=== PATIENT | male | born 1945 | race Caucasian/White ===

== ENCOUNTER → 2017-02-26 | Day surgery (SDC) | payer OTHER ==
[~2017-02-26] VITALS: Ht 182.9 cm; Wt 68.2 kg
[~2017-02-26] MED LIST: ALBU18002 INH; ALLO100T PO; ASCO500T3 PO; ASPCH81X PO; ATOR-24 PO; CARV3.122 PO; CLOP1TAB54 PO; CRD200 PO; CYM/30 PO; ERGO500011 PO; ETOMIDATE 2 MG/ML 20 ML VIAL IV ONE; EpHEDrine SULFATE 50MG/5ML SYR ONE; FLV1 PO; FRS/40 PO; GLIM1TAB2 PO; IRON PO; ISR/30 PO; LIDOCAINE HCL 2% 2 ML VIAL (20MG/ML) ONE; MIDAZOLAM HCL 1 MG/ML 2ML VIAL ONE; MONT1TAB5 PO; NITR0.1S SC; OMEP40CA41 PO; PROPOFOL IV EMULSION 10 MG/ML 20 ML VIAL IV ONE; SPIR25TA PO; SUCR1TAB PO; SYMIN160 INH
[2017-02-26 08:03] VITALS: Ht 182.9 cm; Wt 68.2 kg
--- NOTE | 2017-02-26 08:34 | Endo History and Physical ---
History & Physical Date of Service: February 26, 2017. Chief Complaint: ANEMIA Referring Physician: DR ARANDA History of Present Illness History of recurrent transfusion requiring anmeia for repeat EGD and colonoscopy today Past Medical History Atrial Fibrillation, Diabetes, Arthritis, Pacemaker, High Cholesterol, Sleep Apnea, CABG, Heart Disease, Hypertension, Kidney Disease, CVA/TIA Past Surgical History Hx Cardiac Surgery: Yes (2 CABG PROCEDURES (SEE ABOVE), 1 CARDIAC STENT, CARDIAC ABLATION) Hx Internal Defibrillator: No Hx Pacemaker: Yes (PACEMAKER/DEF CHANGED) Hx Abdominal Surgery: Yes (OPEN APPY, AAA REPAIR) Hx of Implantable Prosthesis: No Hx Post-Op Nausea and Vomiting: No Hx Cancer Surgery: No Hx Thoracic Surgery: No Hx Orthopedic: Yes (TRIGGER FINGER RELEASE) Hx Urinary Tract Surgery: Yes (RT NEPHRECTOMY) Family History None Social History Smoking Status: Former Smoker Hx Substance Use: No Hx Alcohol Use: No Allergies Coded Allergies: Hydromorphone (Verified Allergy, Unknown, NECK TIGHTNESS, 02/26/17) Ondansetron (Verified Allergy, Unknown, unknown, 02/26/17) Rosuvastatin (Verified Allergy, Unknown, HEADACHE, 02/26/17) Uncoded Allergies: CIPROFLEXACIN (Allergy, Mild, RASH, 09/05/15) MEVICOR (Allergy, Mild, UNSURE, 09/05/15) VIBRA TAB (Allergy, Unknown, unknown, 09/12/15) Current Medications Reported Home Medications Medications Dose Route/Sig Max Daily Dose Days Date Category Vitamin D 41489 Unit (Ergocalciferol) 50,000 Unit Cap 1 Tab PO WK 02/24/17 Reported Aldactone (Spironolactone) 25 Mg Tab 25 Mg PO QAM 02/24/17 Reported Montelukast Sodium 10 Mg Tab 1 Tab PO HS 90 02/24/17 Reported Glimepiride 1 Mg Tab 1 Tab PO BID 90 02/24/17 Reported Symbicort 160/4.5 Inhaler (Budesonide/Formoterol Fumarate) Aero 2 Puffs INH BID PRN 02/24/17 Reported Proair Respiclick (Albuterol Sulfate) 108 Mcg/Act Aer 2 Puff INH Q4H PRN 02/24/17 Reported Vitamin C (Ascorbic Acid) 500 Mg Tab 1 Tab PO QAM 02/24/17 Reported [Iron] 65 Mg PO QAM 02/24/17 Reported Lipitor (Atorvastatin Calcium) 40 Mg Tab 40 Mg PO QAM 02/24/17 Reported Coreg (Carvedilol) 3.125 Mg Tab 1 Tab PO BID 90 02/24/17 Reported Plavix (Clopidogrel Bisulfate) 75 Mg Tab 75 Mg PO QAM 02/24/17 Reported Lasix (Furosemide) 40 Mg Tab 40 Mg PO QPM 02/24/17 Reported Lasix (Furosemide) 40 Mg Tab 2 Tab PO QAM 02/24/17 Reported Prilosec (Omeprazole) 40 Mg Cap 40 Mg PO QPM 02/24/17 Reported Isordil (Isosorbide Dinitrate) 30 Mg Tab 30 Mg PO BID 02/24/17 Reported Cymbalta (Duloxetine HCl) 30 Mg Cap 1 Cap PO QAM 30 02/24/17 Reported Aspirin Chewable (Aspirin) 81 Mg Chew 81 Mg PO QAM 03/24/16 Reported Folic Acid 1 Mg Tab PO QAM 09/05/15 Reported Nitroglycerin Lingual (Nitroglycerin) 0.4 Mg/[place] Spr SC PRN 09/05/15 Reported Amiodarone HCl 200 Mg Tab 200 Mg PO QAM 09/05/15 Reported Sucralfate 1 Gm Tab 1 Gm PO BID 09/05/15 Reported Zyloprim (Allopurinol) 100 Mg Tab 100 Mg PO QAM 09/05/15 Reported Vital Signs Weight (Kilograms): 68.18 Height (Feet): 6 Height (Inches): 0 Date Time Temp Pulse Resp B/P Pulse Ox O2 Delivery O2 Flow Rate FiO2 02/26/17 08:10 36.4 73 20 91/61 97 Room Air Physical Exam General Appearance: no apparent distress Respiratory/Chest: Auscultation: breath sounds normal Cardiovascular: Heart Auscultation: II/ NERI Abdomen: Inspection & Palpation: soft Assessment and Plan EGD and colonoscopy today. Risks discussed to include bleeding, infection, perforation, pain, and missed polyps.
--- NOTE | 2017-02-26 09:15 | GI REPORT ---
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 Estimated blood loss: Minimal. Estimated Blood Loss: Estimated blood loss was minimal. Procedure: Pre-Anesthesia Assessment: - Prior to the procedure, a History and Physical was performed, and patient medications, allergies and sensitivities were reviewed. The patient's tolerance of previous anesthesia was reviewed. - The risks and benefits of the procedure and the sedation options and risks were discussed with the patient. All questions were answered and informed consent was obtained. - Patient identification and proposed procedure were verified prior to the procedure by the physician, the nurse and the employment educational coord. The procedure was verified in the procedure room. - Pre-procedure physical examination revealed no contraindications to sedation. - ASA Grade Assessment: IV - A patient with severe systemic disease that is a constant threat to life. - After reviewing the risks and benefits, the patient was deemed in satisfactory condition to undergo the procedure. - The anesthesia plan was to use monitored anesthesia care (MAC). - Immediately prior to administration of medications, the patient was re-assessed for adequacy to receive sedatives. - The heart rate, respiratory rate, oxygen saturations, blood pressure, adequacy of pulmonary ventilation, and response to care were monitored throughout the procedure. - The physical status of the patient was re-assessed after the procedure. After obtaining informed consent, the endoscope was passed under direct vision. Throughout the procedure, the patient's blood pressure, pulse, and oxygen saturations were monitored continuously. The scope was introduced through the mouth, and advanced to the third part of duodenum. The upper GI endoscopy was accomplished without difficulty. The patient tolerated the procedure well. Findings: The examined esophagus was normal. The Z-line was regular and was found 35 cm from the incisors. The gastric fundus, gastric body and incisura were normal. Two 4 mm no bleeding angiodysplastic lesions were found in the gastric antrum. Coagulation for destruction of remaining portion of lesion using argon plasma at 1 liter/minute and 20 cheek was successful. Estimated blood loss was minimal. Four 3 to 6 mm angiodysplastic lesions without bleeding were found in the duodenal bulb, in the second part of the duodenum and in the third part of the duodenum. Coagulation for destruction of remaining portion of lesion using argon plasma at 1 liter/minute and 20 cheek was successful. Estimated blood loss was minimal. Impression: - Normal esophagus. - Z-line regular, 35 cm from the incisors. 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 Treated with argon plasma coagulation (APC). - Four non-bleeding angiodysplastic lesions in the duodenum. Treated with argon plasma coagulation (APC). Recommendation: - Perform a colonoscopy today. - Observe patient's clinical course following today's procedure with therapeutic intervention. - Perhaps patient should only be on one anticoagulant or antiplatelet agent, given history he is likely to have further problems with AVMs. Antonio Roche D.O. Antonio Roche, DO 02/26/2017 9:14:55 AM This report has been signed electronically. Note Initiated On: 02/26/2017 8:13 AM I attest to the content of the Intraoperative Record and orders documented therein, exceptions below
--- NOTE | 2017-02-26 09:18 | GI REPORT ---
Procedure Date: 02/26/2017 8:12 AM Procedure: Colonoscopy Indications: High risk colon cancer surveillance: Personal history of colonic polyps Medicines: Monitored Anesthesia Care Complications: No immediate complications. Estimated blood loss: Minimal. Estimated Blood Loss: Estimated blood loss was minimal. Procedure: Pre-Anesthesia Assessment: - Prior to the procedure, a History and Physical was performed, and patient medications, allergies and sensitivities were reviewed. The patient's tolerance of previous anesthesia was reviewed. - The risks and benefits of the procedure and the sedation options and risks were discussed with the patient. All questions were answered and informed consent was obtained. - Patient identification and proposed procedure were verified prior to the procedure by the physician, the nurse and the hand plate stacker. The procedure was verified in the procedure room. - Pre-procedure physical examination revealed no contraindications to sedation. - ASA Grade Assessment: IV - A patient with severe systemic disease that is a constant threat to life. - After reviewing the risks and benefits, the patient was deemed in satisfactory condition to undergo the procedure. - The anesthesia plan was to use monitored anesthesia care (MAC). - Immediately prior to administration of medications, the patient was re-assessed for adequacy to receive sedatives. - The heart rate, respiratory rate, oxygen saturations, blood pressure, adequacy of pulmonary ventilation, and response to care were monitored throughout the procedure. - The physical status of the patient was re-assessed after the procedure. After I obtained informed consent, the scope was passed under direct vision. Throughout the procedure, the patient's blood pressure, pulse, and oxygen saturations were monitored continuously. The On-site loaner was introduced through the anus and advanced to the terminal ileum. The colonoscopy was performed without difficulty. The patient tolerated the procedure well. The quality of the bowel preparation was adequate to identify polyps 6 mm and larger in size. Findings: The perianal and digital rectal examinations were normal. The terminal ileum appeared normal. One small angiodysplastic lesion without bleeding was found in the transverse colon. Coagulation for destruction of remaining portion of lesion using argon plasma at 1 liter/minute and 20 cheek was successful. Estimated blood loss: none. Internal hemorrhoids were found during retroflexion. The hemorrhoids were mild. The exam was otherwise without abnormality. Impression: - The examined portion of the ileum was normal. - One non-bleeding colonic angiodysplastic lesion. Treated with argon plasma coagulation (APC). - Internal hemorrhoids. - The examination was otherwise normal. Recommendation: - Discharge patient to home (ambulatory). - Advance diet as tolerated today. - Repeat colonoscopy in 3 years for surveillance depending on overall health at that time. Antonio Roche D.O. Antonio Roche, 02/26/2017 9:18:32 AM This report has been signed electronically. Note Initiated On: 02/26/2017 8:12 AM I attest to the content of the Intraoperative Record and orders documented therein, exceptions below
--- NOTE | 2017-02-26 09:21 | Discharge Instructions ---
Endoscopy Patient Instructions Date / Procedure(s) Performed February 26, 2017. Colonoscopy, EGD Allergy Information Coded Allergies: Hydromorphone (Verified Allergy, Unknown, NECK TIGHTNESS, 02/26/17) Ondansetron (Verified Allergy, Unknown, unknown, 02/26/17) Rosuvastatin (Verified Allergy, Unknown, HEADACHE, 02/26/17) Uncoded Allergies: CIPROFLEXACIN (Allergy, Mild, RASH, 09/05/15) MEVICOR (Allergy, Mild, UNSURE, 09/05/15) VIBRA TAB (Allergy, Unknown, unknown, 09/12/15) Discharge Date / Findings February 26, 2017. Several AVMs in the upper digestive tract 1 avm in the colon internal hemorrhoiods Medication Instructions Reported Home Medications Medications Dose Route/Sig Max Daily Dose Days Date Category Vitamin D 48187 Unit (Ergocalciferol) 50,000 Unit Cap 1 Tab PO WK 02/24/17 Reported Aldactone (Spironolactone) 25 Mg Tab 25 Mg PO QAM 02/24/17 Reported Montelukast Sodium 10 Mg Tab 1 Tab PO HS 90 02/24/17 Reported Glimepiride 1 Mg Tab 1 Tab PO BID 90 02/24/17 Reported Symbicort 160/4.5 Inhaler (Budesonide/Formoterol Fumarate) Aero 2 Puffs INH BID PRN 02/24/17 Reported Proair Respiclick (Albuterol Sulfate) 108 Mcg/Act Aer 2 Puff INH Q4H PRN 02/24/17 Reported Vitamin C (Ascorbic Acid) 500 Mg Tab 1 Tab PO QAM 02/24/17 Reported [Iron] 65 Mg PO QAM 02/24/17 Reported Lipitor (Atorvastatin Calcium) 40 Mg Tab 40 Mg PO QAM 02/24/17 Reported Coreg (Carvedilol) 3.125 Mg Tab 1 Tab PO BID 90 02/24/17 Reported Plavix (Clopidogrel Bisulfate) 75 Mg Tab 75 Mg PO QAM 02/24/17 Reported Lasix (Furosemide) 40 Mg Tab 40 Mg PO QPM 02/24/17 Reported Lasix (Furosemide) 40 Mg Tab 2 Tab PO QAM 02/24/17 Reported Prilosec (Omeprazole) 40 Mg Cap 40 Mg PO QPM 02/24/17 Reported Isordil (Isosorbide Dinitrate) 30 Mg Tab 30 Mg PO BID 02/24/17 Reported Cymbalta (Duloxetine HCl) 30 Mg Cap 1 Cap PO QAM 30 02/24/17 Reported Aspirin Chewable (Aspirin) 81 Mg Chew 81 Mg PO QAM 03/24/16 Reported Folic Acid 1 Mg Tab PO QAM 09/05/15 Reported Nitroglycerin Lingual (Nitroglycerin) 0.4 Mg/[place] Spr SC PRN 09/05/15 Reported Amiodarone HCl 200 Mg Tab 200 Mg PO QAM 09/05/15 Reported Sucralfate 1 Gm Tab 1 Gm PO BID 09/05/15 Reported Zyloprim (Allopurinol) 100 Mg Tab 100 Mg PO QAM 09/05/15 Reported Provider Instructions Activity Restrictions - No exercising or heavy lifting for 24 hours. - Do not drink alcohol the day of the procedure. - Do not drive a car or operate machinery until the day after the procedure. - Do not make any important decisions or sign important papers in 24 hours after the procedure. Following Day: - Return to full activity which may include returning to work/school. Diet Start your diet with liquids and light foods (jello, soup, juice, toast). Then eat your usual diet if not nauseated. Treatment For Common After Affects For mild abdominal pain, bloating, or excessive gas: - Rest - Eat lightly - Lie on right side Follow-Up Information Follow-up with and Dr. Watts as scheduled If patient continues to have problems with transfusion requiring anemia perhaps his antiplatelet medications need to be altered Anesthesia Information What You Should Know You have had a procedure that required some medicine to reduce anxiety and discomfort. This treatment is called moderate sedation. After receiving the treatment, you may be sleepy, but you will be able to breathe on your own. The effects of the treatment may last for several hours. Follow these instructions along with Activity/Diet recommendations noted above: * Do NOT do anything where dizziness or clumsiness would be dangerous. * Rest quietly at home today, then you can be up and about tomorrow. * Have a responsible person stay with you the rest of today. * You may have had an I.V. today. If so, you may take the dressing off later today. Recommendations Call your doctor if: * Trouble breathing * Continuous vomiting for more than 24 hours * Temperature above 101 degrees * Severe abdominal pain or bloating * Pain not relieved by pain medicine ordered * There is increased drainage or redness from any incision * A large amount of rectal bleeding greater than 2-3 tablespoons. (If you had a polyp/s removed or have hemorrhoids, a small amount of blood - from the rectum is to be expected.) * You have any unanswered questions or concerns. IN THE EVENT OF A SERIOUS EMERGENCY, GO TO THE NEAREST EMERGENCY ROOM Your discharge instructions were prepared by provider Antonio Roche. Patient Instructions Signature Page Manolo Brunson Patient (or Guardian) Signature/Date: I have read and understand the instructions given to me by my caregivers. Caregiver/RN/Doctor Signature/Date: The above-named patient and/or guardian has received patient instructions on this date. + Original Patient Signature Page (only) stays with chart. Please make copy for patient.
--- NOTE | 2017-02-26 09:28 | Anesthesiology Progress Note ---
Anesthesia Post Op Note Date & Time February 26, 2017 at 09:28 Vital Signs Pain Intensity: 0 Vital Signs Past 12 Hours Date Time Temp Pulse Resp B/P Pulse Ox O2 Delivery O2 Flow Rate FiO2 02/26/17 09:15 71 16 105/64 100 Mask 3 02/26/17 08:10 36.4 73 20 91/61 97 Room Air Notes Mental Status: alert / awake / arousable, participated in evaluation Pt Amnestic to Procedure: Yes Nausea / Vomiting: adequately controlled Pain: adequately controlled Airway Patency, RR, SpO2: stable & adequate BP & HR: stable & adequate Hydration State: stable & adequate Anesthetic Complications: no major complications apparent Pt sleepy but doing well.
[2017-02-26 09:45] VITALS: BP 110/64; PULSE 68; O2SAT 99
== END | disposition home or self-care (01) ==
LOC: C.GI 07:35
PROVIDERS: ATTEND Internal Medicine Gastroenterology
DX: Z12.11 Encounter for screening for malignant neoplasm of colon (principal); K55.20 Angiodysplasia of colon without hemorrhage; K64.8 Other hemorrhoids; K31.819 Angiodysplasia of stomach and duodenum without bleeding; Z86.010 Personal history of colon polyps; D64.9 Anemia, unspecified; I48.91 Unspecified atrial fibrillation; I25.10 Atherosclerotic heart disease of native coronary artery without angina pectoris; I10 Essential (primary) hypertension; E78.00 Pure hypercholesterolemia, unspecified; E11.9 Type 2 diabetes mellitus without complications; G47.30 Sleep apnea, unspecified; N28.9 Disorder of kidney and ureter, unspecified; Z95.0 Presence of cardiac pacemaker; Z95.1 Presence of aortocoronary bypass graft; Z86.73 Personal history of transient ischemic attack (TIA), and cerebral infarction without residual deficits; Z95.5 Presence of coronary angioplasty implant and graft; Z79.02 Long term (current) use of antithrombotics/antiplatelets; Z79.82 Long term (current) use of aspirin; Z79.899 Other long term (current) drug therapy